=== PATIENT | male | born 1975 | race Caucasian/White ===

== ENCOUNTER → 2021-07-30 | Outpatient (CLI) | payer BC ==
--- NOTE | 2021-07-30 08:59 | RAD ---
AP pelvis, 2 views left hip 07/30/2021 8:51 AM Indication: Reason: LEFT HIP PAIN X 3 DAYS AND GROIN, NKI / Spl. Instructions: / History: Comparison: None Findings: There is no acute fracture or dislocation. Articular surfaces are uninterupted and smooth. Soft tissues are unremarkable. Impression: No evidence of acute osseous abnormality. Electronically signed by: Mike Cortes MD (07/30/2021 8:57 AM) [id number]
== END ==
LOC: RAD 08:35
PROVIDERS: ATTEND Nurse Practitioner Family
DX: M25.552 Pain in left hip (principal)
CPT/HCPCS: 73502